=== PATIENT | female | born 1970 | race Caucasian/White ===

== ENCOUNTER 2025-01-01 09:23 | Emergency (ER) | payer MEDICAID, SELFPAY ==
--- NOTE | 2025-01-01 09:33 | XR_ITS ---
Examination: PA lateral chest 2 views TECHNIQUE: Upright PA lateral chest 2 views INDICATIONS: Coughing fever difficulty breathing chest pain beginning this morning. FINDINGS: Mild opacity in the lingular segment on the lateral view Normal heart size Intact osseous structures IMPRESSION: Suspicious for early pneumonia in the lingular segment left upper lobe
[2025-01-01 09:35] VITALS: BP 138/97; PULSE 105; RESP 19; TEMP 36.6; O2SAT 98
--- NOTE | 2025-01-01 09:37 | EDNOTE_ITS ---
ED SOB =RME/HPI General Chief Complaint: Shortness of Breath/Dyspnea Stated Complaint: DIFFICULTY BREATHING SINCE THIS AM, HAS PNA Time Seen by Provider: 01/01/25 09:30 Source: patient Arrival date/time: 01/01/25 09:23 54-year-old female with no known medical history presents to the emergency room with a chief complaint of difficulty breathing since this morning. Mode of arrival: ambulatory Limitations: no limitations Related Data Previous Rx's ?Medication ?Instructions ?Recorded ibuprofen 800 mg tablet 800 mg PO TID PRN pain #30 t abs 05/16/19 hydrocodone 5 mg-acetaminophen 325 1 tab PO Q6H #12 ta bs 05/22/19 mg tablet albuterol sulfate 90 mcg/actuation 2 puff inhalation Q 6H PRN 01/01/25 aerosol inhaler (Ventolin HFA) shortness of breath or wheezing #6.7 grams amoxicillin 875 mg-potassium 1 tab PO BID 7 days #14 t abs 01/01/25 clavulanate 125 mg tablet promethazine 6.25 mg-codeine 10 5 ml PO Q6H PRN cough #118 mL 01/01/25 mg/5 mL syrup Allergies Allergy/AdvReac Type Severity Reaction Status Date / Time No Known Allergies Allergy Verified 01/01/25 09:26 Review of Systems Review of Systems Systems Reviewed: All systems reviewed, normal except as documented Constitutional Constitutional: Reports system reviewed and no additional complaints, except as documented, Denies fatigue, Denies fever(s), Denies headache(s) and Denies weakness Eyes Eyes: Reports system reviewed and no additional complaints, except as documented, Denies blurry vision and Denies change in vision ENT Ears, Nose, Mouth, and Throat: Reports system reviewed and no additional complaints, except as documented, Denies otalgia, Denies headache(s), Denies nasal congestion, Denies throat swelling and Denies vertigo Cardiovascular Cardiovascular: Reports system reviewed and no additional complaints, except as documented, Denies chest pain, Reports dyspnea and Reports dyspnea on exertion Respiratory Respiratory: Reports system reviewed and no additional complaints, except as documented, Reports chest congestion, Reports cough, Reports dyspnea, Reports dyspnea on exertion, Reports excessive phlegm production and Denies wheezing Gastrointestinal Gastrointestinal: Reports system reviewed and no additional complaints, except as documented, Denies abdominal pain, Denies cramping, Denies nausea and Denies vomiting Genitourinary Genitourinary: Reports system reviewed and no additional complaints, except as documented Musculoskeletal Musculoskeletal: Reports system reviewed and no additional complaints, except as documented and Denies back pain Integumentary/Breasts Skin/Breast: Reports system reviewed and no additional complaints, except as documented and Denies wounds Neurologic Neurologic: Reports system reviewed and no additional complaints, except as documented, Denies confusion, Denies headache(s), Denies lack of coordination, Denies vertigo and Denies weakness Psychiatric Psychiatric: Reports system reviewed and no additional complaints, except as documented, Denies anxiety, Denies confusion, Denies depression, Denies paranoia, Denies suicidal ideation and Denies tactile hallucinations Endocrine Endocrine: Reports system reviewed and no additional complaints, except as documented and Denies fatigue Hematologic/Lymphatic Hematologic/Lymphatic: Reports system reviewed and no additional complaints, except as documented and Denies lymphadenopathy Allergic/Immunologic Allergic/Immunologic: Reports system reviewed and no additional complaints, except as documented, Denies throat swelling, Denies urticaria and Denies wheezing Past Medical History Past Medical History CARDIAC: Negative Congestive Heart Failure RESPIRATORY: Negative Chronic Obstructive Pulmonary Disease (COPD) GENITOURINARY: Negative Renal Disease ENDOCRINE: Negative Diabetes Mellitus Type 1 or Diabetes Mellitus Type 2 Social History SMOKING STATUS: Former smoker ED Exam General Limitations: Present no limitations General appearance: Present alert and in no apparent distress Head Head exam: Present atraumatic Eye Eye exam: Present normal appearance, PERRL and EOMI ENT ENT exam: Present normal exam, normal oropharynx and mucous membranes moist Neck Neck exam: Present normal inspection, full ROM and trachea midline Chest Chest inspection: Present normal inspection and symmetric chest wall rise Respiratory Respiratory exam: Present normal lung sounds bilaterally; Absent respiratory distress, wheezes, stridor, accessory muscle use or prolonged expiratory phase Cardiovascular Cardiovascular exam: Present regular rate, normal rhythm and normal heart sounds Abdominal Exam Abdominal exam: Present soft and normal bowel sounds Extremities Exam Extremities exam: Present normal inspection and full ROM Back Exam Back exam: Present normal inspection and full ROM Neurological Exam Neurological exam: Present alert, oriented X3 and CN II-XII intact Psychiatric Psychiatric exam: Present normal affect and normal mood Skin Skin exam: Present warm, dry, intact and normal color Course Quality Measures none Orders Category Date Time Status Bedside COVID-19 Antigen Test NOW Care 01/01/25 09:33 Active Bedside Influenza A&B Antigen Test NOW Care 01/01/25 09:33 Active XR chest 2V Stat Exams 01/01/25 09:33 Completed Albuterol/Ipratr Rt [place] [Duoneb Rt [place]] Med 01/01/25 09:33 Discontinued 3 ml INH X1 ONE Dexamethasone Inj [Decadron Inj] Med 01/01/25 09:33 Discontinued 10 mg PO X1 ONE HYDROcodone*/APAP 5/325 [[place] 5/325] Med 01/01/25 11:35 Discontinued 1 tab PO X1 ONE cefTRIAXone [Rocephin] 1,000 mg Med 01/01/25 11:35 Discontinued Lidocaine 1% 20 ml [Xylocaine 1% 20 ML] 2.1 ml IM X1 Vital Signs Vital signs: Vital Signs Temperature 97.9 F 01/01/25 09:35 Pulse Rate 105 H 01/01/25 09:35 Respiratory Rate 19 01/01/25 09:35 Blood Pressure 138/97 H 01/01/25 09:35 Pulse Oximetry (%) 98 01/01/25 09:35 Oxygen Delivery Method Room Air 01/01/25 09:35 O2 saturation 98% within normal limits Shortness of Breath / Dyspnea MDM Narrative MDM Narrative:: 54-year-old female with no known medical history presents to the emergency room with a chief complaint of difficulty breathing since this morning. Patient is hemodynamically stable and in no apparent distress. Physical examination shows bilateral upper lobe wheezing. The patient is hemodynamically stable she is not tachypneic not tachycardic and her O2 saturation is 98% on room air. The patient is afebrile. X-ray was completed and shows pneumonia in the left upper lobe. COVID-19 influenza were both negative. The patient was given a breathing treatment with steroids which showed significant improvement in her symptoms. Antibiotics are sent to the patient's pharmacy Patient was discharged and educated to follow-up with primary care provider in the next 24 to 48 hours and return to the emergency room for any evidence of worsening signs or symptoms Patient data External records reviewed:: [facility] previous records Clinical information provided by:: patient Social determinants that could affect healthcare access:: none Patient has the following chronic illnesses:: No chronic illness How is presenting disease/condition affected by chronic disease/condition?: no chronic disease Evaluation data The following diagnostics were reviewed and interpreted by me:: lab results and radiology exam(s) Lab and/or radiology exams considered but not ordered:: Labs and radiology exams considered and ordered Interpretation Summary: Chest [id number]: Mild opacity in the lingular segment on the lateral view Normal heart size Intact osseous structures IMPRESSION: Suspicious for early pneumonia in the lingular segment left upper lobe Medications / Prescriptions Medications or Prescriptions considered but not ordered:: Medication given Medication administrations:: Medication Administration History Discontinued Medications Hydrocodone Bitart/Acetaminophen (Hydrocodone/Apap 5/325 Tablet) 1 tab PO X1 ONE Stop: 01/01/25 11:36 Last Admin: 01/01/25 11:44 Dose: 1 tab Documented By: OA Albuterol/Ipratropium (Albuterol/Ipratropium (Duoneb) Rt [place] 3 Ml Nebu) 3 ml INH X1 ONE Stop: 01/01/25 09:34 Last Admin: 01/01/25 11:08 Dose: 3 ml Documented By: CS Ceftriaxone Sodium 1,000 mg/ (Lidocaine HCl 2.1 ml) 0 mg IM X1 ONE Stop: 01/01/25 11:36 Last Admin: 01/01/25 11:46 Dose: 1,000 mg Documented By: OA Dexamethasone Sodium Phosphate (Dexamethasone Sod Phos Inj 10 Mg/Ml Vial) 10 mg PO X1 ONE Stop: 01/01/25 09:34 Last Admin: 01/01/25 09:41 Dose: 10 mg Documented By: [facility] Comments: ordered orally Medication given Consultations Consultation(s) initiated? (list below): No Diagnosis Shortness of Breath Differential Diagnosis: congestive heart failure, community acquired pneumonia and asthma with exacerbation Most likely diagnosis given after review of the tests above:: Community-acquired pneumonia Admission Indicated Admission indicated?: not indicated Admission Request Was there a request for admission?: No Disposition Plan Disposition Plan: Discharge Discharge Attestation Discharge Attestation: The patient and all family members were given an opportunity to ask questions and understood the discharge instructions. Discharge instructions specifically effects, indications for sooner follow up or return to the emergency department, and the expected course of current diagnosis. Patient condition: Stable Discharge Plan Plan Patient Disposition: HOME (Self Care) Discharge Disposition comment: Stable Prescriptions/Referrals Prescriptions/Med Rec: New albuterol sulfate [Ventolin HFA] 90 mcg/actuation HFA aerosol inhaler 2 puff inhalation Q6H PRN (Reason: shortness of breath or wheezing) Qty: 6.7 0RF amoxicillin-pot clavulanate 875-125 mg tablet 1 tab PO BID 7 Days Qty: 14 0RF promethazine-codeine 6.25-10 mg/5 mL syrup 5 ml PO Q6H PRN (Reason: cough) Qty: 118 0RF No Action ibuprofen 800 mg tablet 800 mg PO TID PRN (Reason: pain) Qty: 30 0RF hydrocodone-acetaminophen 5-325 mg tablet 1 tab PO Q6H MDD 6 Qty: 12 0RF Referrals: Darion Shrestha MD [Primary Care Provider] - In 1 week Problem List Clinical Impression: Community acquired pneumonia Patient/Caregiver Discharge Instructions Education Materials: ED Pneumonia (Adult) Additional Instructions: Please follow-up with your primary care provider in the next 24 to 48 hours. Medication was sent to your pharmacy please pick it up and take it as indicated For any evidence of worsening signs or symptoms return the emergency room immediately Print Language: Bengali Stand Alone Forms: Lucia Award Info., Patient Portal Info Letter PA/HOOP BENDER TANK Supervising Physician PA/DREA Supervising Physician: Dr. Nguyen
[2025-01-01] MEDS: DEXAMETHASONE SOD PHOS INJ 10 MG/ML VIAL PO (09:41)
[2025-01-01] MEDS: ALBUTEROL/IPRATROPIUM (Duoneb) RT SOL 3 ML NEBU INH (11:08)
[2025-01-01 11:09] VITALS: PULSE 99; RESP 18; O2SAT 100
[2025-01-01] MEDS: HYDROcodone/APAP 5/325 TABLET 1 TAB PO (11:44)
[2025-01-01] MEDS: cefTRIAXone 1,000 MG, LIDOCAINE 1% 20 ML 2.1 ML IM (11:46)
[2025-01-01 12:43] VITALS: BP 124/74; PULSE 78
== END 2025-01-01 12:44 | disposition home or self-care (01) ==
PROVIDERS: Emergency Provider Family Medicine; PCP Family Medicine
DX: J18.9 Pneumonia, unspecified organism (principal); Z87.891 Personal history of nicotine dependence
CPT/HCPCS: 71046; 94640; 96372; 99283; A9270; J0696; J1100; J3490

== ENCOUNTER 2025-08-17 22:44 | Inpatient (IN) | payer MEDICAID, SELFPAY ==
[2025-08-17 22:53] VITALS: BP 142/83; PULSE 116; RESP 18; TEMP 38.1; O2SAT 97
[2025-08-17 22:55] VITALS: PULSE 101; RESP 24; O2SAT 98; BMI 23.5
[2025-08-17 23:07] VITALS: BP 123/102; PULSE 128; RESP 23; TEMP 37.4; O2SAT 93
--- NOTE | 2025-08-17 23:07 | EKG_ITS ---
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
--- NOTE | 2025-08-17 23:10 | PD.EDSOB ---
ED SOB =RME/HPI General Chief Complaint: Shortness of Breath/Dyspnea Stated Complaint: SOB Time Seen by Provider: 08/17/25 23:10 Arrival date/time: 08/17/25 22:44 RME / HPI RME / HPI Narrative: Dr. Rosales?s Main ED Evaluation: 55yo female LUIS A from home presenting with gradual increasing shortness of breath and pleuritic chest pain throughout the evening. Reports flu-like symptoms consistent with cold, cough, congestion, and body aches. No N/V/D. PMH unremarkable. PSH includes previous salpingectomy due to ectopic . NKA. Related Data Previous Rx's ?Medication ?Instructions ?Recorded ibuprofen 800 mg tablet 800 mg PO TID PRN pain #30 tabs 05/16/19 hydrocodone 5 mg-acetaminophen 325 1 tab PO Q6H #12 tabs 05/22/19 mg tablet albuterol sulfate 90 mcg/actuation 2 puff inhalation Q6H PRN 01/01/25 aerosol inhaler (Ventolin HFA) shortness of breath or wheezing #6.7 grams promethazine 6.25 mg-codeine 10 5 ml PO Q6H PRN cough #118 mL 01/01/25 mg/5 mL syrup Allergies Allergy/AdvReac Type Severity Reaction Status Date / Time No Known Allergies Allergy Verified 01/01/25 09:26 Review of Systems Review of Systems Systems Reviewed: All systems reviewed, normal except as documented Past Medical History Past Medical History CARDIAC: Negative Congestive Heart Failure RESPIRATORY: Negative Chronic Obstructive Pulmonary Disease (COPD) GENITOURINARY: Negative Renal Disease ENDOCRINE: Negative Diabetes Mellitus Type 1 or Diabetes Mellitus Type 2 Social History SMOKING STATUS: Former smoker ED Exam Narrative Physical exam: GENERAL APPEARANCE: alert and oriented x 4, well-developed, well-nourished, complaining of intense chest pain and shortness of breath, in moderate distress HEENT: Normocephalic, atraumatic; pupils equal, round, reactive to light; EOMI; mucous membranes pink, moist; oropharynx clear NECK: Supple LUNGS: Poor inspiratory effort due to pain, extremely diminished breath sounds at the right base HEART: Tachycardic, regular rhythm; normal S1, S2; no murmurs ABDOMEN: non distended; normal BS; soft, no tenderness, no guarding, no rebound; no masses, no organomegaly, no hernia BACK: no CVA tenderness EXTREMITIES: atraumatic; no edema NEUROLOGIC: awake; alert and oriented x4; cranial nerves II-XII grossly intact; no focal sensory or motor deficits PSYCHIATRIC: appropriate mood and affect SKIN: warm, dry, normal color; no rashes Course Course Course Narrative: CXR is ordered for determining the etiology of shortness of breath. Quality Measures none Orders Category Date Time Status Bedside COVID-19 Antigen Test NOW Care 08/18/25 03:46 Active Hospice Manager STAT Care 08/18/25 02:49 Active Continuous Pulse Oximetry STAT Care 08/18/25 02:49 Completed EKG (ED ONLY) *Do not use* NOW Care 08/17/25 23:07 Completed In and Out Catheter X1PRN Care 08/18/25 02:49 Active Insert IV NOW Care 08/18/25 02:49 Active NPO STAT Care 08/18/25 02:49 Active Strict Intake and Output Routine Care 08/18/25 02:49 Ordered EKG (ED Only) Stat Exams 08/17/25 23:07 Draft XR chest 1V portable Stat Exams 08/17/25 23:26 Completed B-Type Natriuretic Peptide Stat Lab 08/18/25 03:10 Completed Blood Culture (Lab) Stat Lab 08/18/25 03:10 Received CBC Stat Lab 08/18/25 03:10 Completed Comprehensive Metabolic Panel Stat Lab 08/18/25 03:10 Completed LDH (Lactate Dehydrogenase) Stat Lab 08/18/25 03:10 Completed Lactate (Lactic Acid) Stat Lab 08/18/25 03:10 Completed Lipase Stat Lab 08/18/25 03:10 Completed Magnesium Stat Lab 08/18/25 03:10 Completed Partial Thromboplastin Time Stat Lab 08/18/25 03:10 Completed Phosphorous Stat Lab 08/18/25 03:10 Completed Procalcitonin Stat Lab 08/18/25 03:10 Completed Prothrombin Time with INR Stat Lab 08/18/25 03:10 Completed Troponin I Stat Lab 08/18/25 03:10 Completed Urinalysis, C/S if Indicated Stat Lab 08/18/25 02:49 Ordered Haloperidol Lactate [Haldol Inj] Med 08/18/25 03:05 Discontinued 5 mg IM X1 ONE Ipratropium [place] Rt [place] [Atrovent Rt [place]] Med 08/17/25 23:27 Discontinued 0.5 mg INH X1 ONE Ketorolac Inj [Toradol Inj] Med 08/17/25 23:25 Discontinued 30 mg IM X1 ONE Ketorolac Inj [Toradol Inj] Med 08/18/25 04:10 Discontinued 30 mg IVP X1 ONE Levalbuterol Rt [Xopenex Rt [place]] Med 08/17/25 23:25 Discontinued 0.63 mg INH X1 ONE Midazolam Inj [Versed Inj] Med 08/18/25 03:05 Discontinued 2 mg IM X1 ONE Midazolam Inj [Versed Inj] Med 08/17/25 23:25 Discontinued 5 mg IM X1 ONE Ondansetron Inj [Zofran Inj] Med 08/18/25 02:49 Active 4 mg IVP Q6HR PRN Ondansetron Odt [Zofran Odt] Med 08/18/25 02:49 Pending 4 mg PO Q6HR PRN Sodium Chloride 0.9% 1000 ml [Ns] 1,641 ml Med 08/18/25 02:49 Discontinued IV 1,641 mls/hr cefTRIAXone/D5w 1gm IV premix [Rocephin/D5w 1gm IV Med 08/18/25 02:49 Discontinued premix] 1 gm in 50 ml IV X1 Oxygen Delivery NOW RT 08/18/25 02:49 Active Vital Signs Vital signs: Vital Signs Temperature 100.5 F H 08/17/25 22:53 Pulse Rate 116 H 08/17/25 22:53 Respiratory Rate 18 08/17/25 22:53 Blood Pressure 142/83 H 08/17/25 22:53 Pulse Oximetry (%) 97 08/17/25 22:53 Shortness of Breath / Dyspnea MDM Narrative MDM Narrative:: Scribe Attestation: 08/17/25 - Suha Roque am scribing for and in the presence of Dr. Rosales. 55yo female BIBA from home presenting with gradual increasing shortness of breath and pleuritic chest pain throughout the evening. Reports flu-like symptoms consistent with cold, cough, congestion, and body aches. Please see PE findings. Patient was somewhat hysterical upon presentation, requiring sedation. Continues to complain of right lower pleuritic chest pain and is mildly tachycardic at rest although sedated. She is saturating in the mid 90 percentile range. CXR demonstrates right lower lobe pneumonia. Will enroll patient sepsis protocol. Hospitalist will be consulted for admission. Dx: acute sepsis, pneumonia Patient data External records reviewed:: [facility] previous records (Per chart review, patient was seen here on 01/01/25 for community acquired pneumonia.) and EMS form Clinical information provided by:: patient and EMS Social determinants that could affect healthcare access:: substance use (history of) Patient has the following chronic illnesses:: none How is presenting disease/condition affected by chronic disease/condition?: no chronic disease Evaluation data The following diagnostics were reviewed and interpreted by me:: lab results, radiology exam(s) and EKG tracing(s) Lab and/or radiology exams considered but not ordered:: none Interpretation Summary: EKG done at 2312, sinus tachycardia, rate of 122, no acute pathological ST segment changes, no ectopy, ?LVH by voltage criteria, left axis deviation, according to my interpretation. [place] [facility] Report Signed Patient: BLAIEN AMARO [facility]. Record#: [id number] Birthdate: 1970 Age/Sex: 55 / F Location: [facility] Attending Dr: Ordering Physician: Zach Honeycutt DO Date of Service: 08/17/25 Procedure(s): XR chest 1V portable Accession Number(s): [id number] cc: Zach Honeycutt DO; Willi Walls MD~ EXAMINATION: AP chest single view TECHNIQUE: AP portable upright chest single view Date and time: , 11:42 p.m., comparison January 01, 2025 INDICATIONS: Shortness of breath today. FINDINGS: Early pneumonia right base Normal heart size No pulmonary edema Moderate osteopenia IMPRESSION: Early pneumonia right base Dictated By: Willi Walls MD Signed By: <Electronically signed by Willi Walls MD in [place]> 08/17/25 3586 Medications / Prescriptions Medications or Prescriptions considered but not ordered:: none Medication administrations:: Medication Administration History Ondansetron HCl (Ondansetron Inj 2 Mg/Ml Inj 2 Ml) 4 mg IVP Q6HR PRN PRN Reason: NAUSEA OR VOMITING Stop: 09/17/25 02:48 Ondansetron HCl (Ondansetron Odt 4 Mg Tabrap) 4 mg PO Q6HR PRN PRN Reason: NAUSEA OR VOMITING Stop: 09/17/25 02:48 Discontinued Medications Haloperidol Lactate (Haloperidol Lact Inj 5 Mg/Ml Vial) 5 mg IM X1 ONE Stop: 08/18/25 03:06 Last Admin: 08/18/25 05:12 Dose: Not Given Documented By: UMAIR Non-Admin Reason: Cancelled by Provider Sodium Chloride (Ns) 1,641 mls @ 1,641 mls/hr 30 ml/kg infuse over 60 min (1641 ml) IV .Q1H ONE Stop: 08/18/25 03:48 Last Admin: 08/18/25 03:20 Dose: 1,641 mls/hr Documented By: PORTIA Ceftriaxone Sodium/Dextrose (Rocephin/D5w 1gm Iv Premix) 1 gm in 50 mls @ 100 mls/hr IV X1 ONE Stop: 08/18/25 03:18 Last Admin: 08/18/25 03:21 Dose: 100 mls/hr Documented By: PORTIA Ipratropium [place] (Ipratropium Rt 0.5 Mg/ 2.5 Ml Nebu) 0.5 mg INH X1 ONE Stop: 08/17/25 23:28 Last Admin: 08/17/25 23:52 Dose: 0.5 mg Documented By: JOSE Ketorolac Tromethamine (Ketorolac Inj 30 Mg/Ml Vial) 30 mg IM X1 ONE Stop: 08/17/25 23:26 Last Admin: 08/17/25 23:39 Dose: 30 mg Documented By: UMAIR Ketorolac Tromethamine (Ketorolac Inj 30 Mg/Ml Vial) 30 mg IVP X1 ONE Stop: 08/18/25 04:11 Last Admin: 08/18/25 04:16 Dose: 30 mg Documented By: PORTIA Levalbuterol HCl (Levalbuterol Rt 0.63 Mg/3 Ml Nebu) 0.63 mg INH X1 ONE Stop: 08/17/25 23:26 Last Admin: 08/17/25 23:52 Dose: 0.63 mg Documented By: JOSE Midazolam HCl (Midazolam Inj 1 Mg/Ml Vial 2 Ml) 5 mg IM X1 ONE Stop: 08/17/25 23:26 Last Admin: 08/17/25 23:39 Dose: 5 mg Documented By: UMAIR Midazolam HCl (Midazolam Inj 1 Mg/Ml Vial 2 Ml) 2 mg IM X1 ONE Stop: 08/18/25 03:06 Last Admin: 08/18/25 05:12 Dose: Not Given Documented By: UMAIR Non-Admin Reason: Cancelled by Provider see above Consultations Consultation(s) initiated? (list below): Yes Consultation #1 (Physician, Specialty, Details): Discussed case with the resident physician, attending Dr. Lopez from Hospitalist service regarding admission. Discussed patients ED course, exam findings, labs, and radiology results. The Hospitalist will evaluate the patient for admission. Time: 05:14 Diagnosis Shortness of Breath Differential Diagnosis: community acquired pneumonia and other (dehydration, electrolyte abnormality, drug use) Most likely diagnosis given after review of the tests above:: see clinical impression below Admission Indicated Admission indicated?: indicated Admission Request Was there a request for admission?: Yes Admission Attestation Admission request attestation: Discussed case with [] from Hospitalist service regarding admission. Discussed patients ED course, exam findings, labs, and radiology results. The Hospitalist [agrees,declines] to accept the patient for admission. Disposition Plan Disposition Plan: Admit Discharge Plan Plan Patient Disposition: Admit Acute Care w/in Hospital Prescriptions/Referrals Prescriptions/Med Rec: No Action ibuprofen 800 mg tablet 800 mg PO TID PRN (Reason: pain) Qty: 30 0RF hydrocodone-acetaminophen 5-325 mg tablet 1 tab PO Q6H MDD 6 Qty: 12 0RF albuterol sulfate [Ventolin HFA] 90 mcg/actuation HFA aerosol inhaler 2 puff inhalation Q6H PRN (Reason: shortness of breath or wheezing) Qty: 6.7 0RF promethazine-codeine 6.25-10 mg/5 mL syrup 5 ml PO Q6H PRN (Reason: cough) Qty: 118 0RF Problem List Clinical Impression: Acute sepsis, Pneumonia Patient/Caregiver Discharge Instructions Print Language: Kenyan Stand Alone Forms: Lucia Award Info., Patient Portal Info Letter
--- NOTE | 2025-08-17 23:26 | XR_ITS ---
EXAMINATION: AP chest single view TECHNIQUE: AP portable upright chest single view Date and time: , 11:42 p.m., comparison January 01, 2025 INDICATIONS: Shortness of breath today. FINDINGS: Early pneumonia right base Normal heart size No pulmonary edema Moderate osteopenia IMPRESSION: Early pneumonia right base
[2025-08-17] MEDS: KETOROLAC INJ 30 MG/ML VIAL IM (23:39)
[2025-08-17] MEDS: MIDAZOLAM INJ 1 MG/ML VIAL 2 ML 5 MG IM (23:39)
[2025-08-17] MEDS: IPRATROPIUM RT 0.5 MG/ 2.5 ML NEBU INH (23:52)
[2025-08-17] MEDS: LEVALBUTEROL RT 0.63 MG/3 ML NEBU INH (23:52)
[2025-08-17 23:54] VITALS: BP 137/99; PULSE 125; RESP 22; O2SAT 97
[2025-08-18] VITALS (13 sets, daily range): BP systolic 110–144; BP diastolic 71–97; PULSE 94–121; RESP 15–29; TEMP 36.5–37.2; O2SAT 96–100
[2025-08-18] MEDS: SODIUM CHLORIDE 0.9% 1000 ML 1,641 ML 1641 ML IV (03:20)
[2025-08-18 03:21] LABS: Lactate (Lactic Acid) 1.2 mMol/L (0.4-2.0)
[2025-08-18] MEDS: cefTRIAXone/D5w 1gm IV premix 1 GM/50 ML BAG IV (03:21)
[2025-08-18 03:22] LABS: Basophils # (Auto) 0.0 Thou/mm3 (0.0-0.2); Basophils % (Auto) 0 % (0-2.5); Eosinophils # (Auto) 0.0 Thou/mm3 (0.0-0.5); Eosinophils % (Auto) 0 % (0-10); Hematocrit 40.1 % (36.0-46.0); Hemoglobin 13.1 g/dL (12.0-16.0); Immature Granulocytes Auto 0.05 Thou/mm3 (0.00-0.00); Lymphocytes # (Auto) 1.1 Thou/mm3 (1.0-4.8); Lymphocytes % (Auto) 7 % (10-50); Mean Corpuscular HGB Conc 32.7 g/dl (31.0-37.0); Mean Corpuscular Hemoglobin 29.8 pg (25.0-35.0); Mean Corpuscular Volume 91 fL (80-100); Monocytes # (Auto) 1.1 Thou/mm3 (0.0-0.8); Monocytes % (Auto) 7 % (0-12); Neutrophils # (Auto) 13.1 Thou/mm3 (1.8-7.7); Neutrophils % (Auto) 86 % (37-80); Nucleated Red Blood Cell # 0.00 Thou/mm3 (0.00-0.00); Nucleated Red Blood Cell % 0 /100 WBC (0); Platelet Count 264 Thou/mm3 (140-440); RDW Standard Deviation 42.8 fL (36.4-46.3); Red Blood Count 4.40 Miln/mm3 (4.00-5.20); White Blood Count 15.3 Thou/mm3 (3.6-11.0)
[2025-08-18 03:47] LABS: INR 1.0 (0.9-1.3); Partial Thromboplastin Time 27.5 Seconds (22.0-36.0); Prothrombin Time 10.8 Seconds (9.0-12.2)
[2025-08-18 03:55] LABS: Alanine Aminotransferase 104 U/L (10-49); Albumin, Serum 4.5 gm/dL (3.5-5.0); Albumin/Globulin Ratio 1.6 (1.2-2.2); Alkaline Phosphatase 192 U/L (46-116); Anion Gap 11 (7-16); Aspartate Amino Transferase 61 U/L (0-34); B-Type Natriuretic Peptide < 20 pg/mL (0-100); BUN/Creatinine Ratio 23 Ratio (12-20); Bilirubin,Total 1.0 mg/dL (0.3-1.2); Blood Urea Nitrogen 14 mg/dL (9-23); Calcium 10.2 mg/dL (8.3-10.6); Calcium (Corrected) 10.2 mg/dL (8.5-10.1); Carbon Dioxide 25.8 mMol/L (20.0-31.0); Chloride 102 mMol/L (98-107); Creatinine (Component) 0.6 mg/dL (0.6-1.3); Estimated Creatinine Clearance 91.5 mL/min (>60); Globulin 2.9 gm/dL (2.3-3.5); Glucose 94 mg/dL (74-106); LDH (Lactate Dehydrogenase) 242 U/L (120-246); Lipase 25 U/L (12-53); Magnesium 2.0 mg/dL (1.6-2.6); Osmolality,Calculated 278 (275-295); Phosphorous 4.2 mg/dL (2.4-5.1); Potassium 3.9 mMol/L (3.4-5.1); Procalcitonin 0.17 ng/ml (0.0-0.49); Sodium 139 mMol/L (136-145); Total Protein 7.4 gm/dL (5.7-8.2); Troponin I < 0.020 ng/mL (0.0-0.045); eGFR > 60 See Note
[2025-08-18] MEDS: KETOROLAC INJ 30 MG/ML VIAL IVP (04:16)
--- NOTE | 2025-08-18 05:50 | XR_ITS ---
Examination: Abdomen sonogram, complete Date and time of exam: August 18, 2025, 0710 hours INDICATIONS: Right upper abdominal pain beginning last night. Technique: Multiple real-time grayscale transabdominal sonographic images of the abdomen have been obtained. Findings: Normal gallbladder Normal common bile duct 0.3 cm Pancreatic head 1.4 cm Aorta not enlarged Liver 18.2 cm lobular contour Normal hepatopetal portal venous flow Patent IVC Right kidney 10.4 cm renal cortex 1.0 cm Left kidney 11.2 cm renal cortex 1.6 cm Moderate renal scarring Spleen 9.1 cm IMPRESSION: Normal gallbladder Normal common bile duct Moderate hepatomegaly, suspect primary hepatocellular disease
--- NOTE | 2025-08-18 05:59 | ESHP_ITS ---
Documentation for date of: 08/18/25 [facility] History of Present Illness Chief complaint: Shortness of breath History of present illness: This patient is a 55-year-old female with no significant past medical history who presents to [facility] ED on 08/17 with chief complaint of shortness of breath. Patient was admitted for management of alcohol withdrawal. Most of the patient history was taken from the boyfriend at the patient's bedside as the patient was significantly lethargic after being given midazolam and haloperidol for her acute agitation while in the ED. According to the patient's boyfriend, the patient has a long history of drinking a small bottle of vodka for many years and has been doing so daily. Sometime about 2 to 3 days ago, the patient decided to suddenly stop drinking, and then on 08/17, the patient was noted to have a feeling of difficulty breathing, which prompted the patient to come to the ED. Additionally, the patient was supposedly diagnosed with hepatitis C, however just before the patient was going to receive medication for hepatitis C, her repeat titers came back negative for hepatitis C, so she was never given any treatment for this. Additionally, apparently she has a liver mass that was diagnosed with a CT scan of her abdomen and pelvis in outside facility. The patient's is not quite sure what else is going on with the patient and the patient herself was unable to provide any further history. According to the patient's , the patient did not have any fever, chills, chest pain, abdominal pain, and dysuria. Patient's also did not mention anything about vomiting, however unable to get a proper response out of the patient herself. ED course: Initial vitals significant for blood pressure of 142/83, heart rate of 116, and temperature of 100.5 ?F with an O2 saturation of 97% on room air Initial labs significant for WBC of 12.3, hemoglobin of 11.7, AST of 61, ALT 104, and alk phos of 192 Chest x-ray shows other pneumonia right base In ED, patient was given midazolam, haloperidol, ceftriaxone, 1.6 L of NS, with albuterol/ipratropium, and ketorolac Past Surgical History: Patient's is not sure Current Medication(s): Patient's denies any current medications Allergies (w/ Reactions): NKDA Family History: Noncontributory Alcohol Intake: Small bottle of vodka daily for many years Tobacco/Vape Use: Patient's denies Other Drug Use: Patient's denies Review of Systems Review of Systems Systems Reviewed: All systems reviewed, normal except as documented Exam Vital Signs Temp Pulse Resp BP Pulse Ox O2 Del Method 98.2 F 95 21 H 127/79 100 Room Air 08/18/25 05:55 08/18/25 05:55 08/18/25 05:55 08/18/25 05:55 08/18/25 05:55 08/18/25 05:32 Narrative Exam Physical Exam: General: Lethargic, no acute distress. Skin: Warm, dry, intact. Head: Normocephalic, atraumatic. Eye: Normal conjunctiva, PERRL. Cardiovascular: Regular rate and rhythm, no murmur, +S1/S2. Respiratory: Lungs are clear to auscultation, respirations unlabored, no crackles, no wheezing. Gastrointestinal: Soft, tender to palpation of RUQ with negative Germain's sign, non-distended. No guarding or rebound tenderness. Extremities: No edema, no cyanosis, no clubbing. 2+ radial pulse bilaterally, 2+ pedal pulse bilaterally. Neuro: No focal deficits observed. Conversant, moving all extremities. No overt cerebellar signs/incoordination. Psychiatric: Non-cooperative, flat affect. Results: Labs 08/19/25 03:14 08/19/25 03:14 Labs: Short CBC 08/18/25 Range/Units 03:10 WBC 15.3 H (3.6-11.0) Thou/mm3 Hgb 13.1 (12.0-16.0) g/dL Hct 40.1 (36.0-46.0) % Plt Count 264 (140-440) Thou/mm3 BMP 08/18/25 03:10 Sodium 139 Potassium 3.9 Chloride 102 Carbon Dioxide 25.8 BUN 14 Creatinine 0.6 Glucose 94 Calcium 10.2 Cardiac Enzymes 08/18/25 Range/Units 03:10 Troponin I < 0.020 (0.0-0.045) ng/mL Liver Function 08/18/25 Range/Units 03:10 Total Bilirubin 1.0 (0.3-1.2) mg/dL AST 61 H (0-34) U/L ALT 104 H (10-49) U/L Alkaline Phosphatase 192 H (46-116) U/L Albumin 4.5 (3.5-5.0) gm/dL Quality Measures Quality Measures VTE prophylaxis Medications Home Medications and Allergies Allergies Allergy/AdvReac Type Severity Reaction Status Date / Time No Known Allergies Allergy Verified 01/01/25 09:26 Visit Medications Acetaminophen (Acetaminophen 325 Mg Tablet) 650 mg PO Q6H PRN PRN Reason: Fever >101.5 or pain 1-3 Stop: 09/17/25 05:43 Albuterol/Ipratropium (Albuterol/Ipratropium (Duoneb) Rt [place] 3 Ml Nebu) 3 ml INH Q6HR PRN PRN Reason: SHORTNESS OF BREATH OR WHEEZE Stop: 09/17/25 05:43 Diazepam (Diazepam Inj 5 Mg/Ml Vial 2 Ml) 2.5 mg IVP Q2HR PRN PRN Reason: CIWA SCORE 8-13 Stop: 08/23/25 05:50 Diazepam (Diazepam Inj 5 Mg/Ml Vial 2 Ml) 5 mg IVP Q2HR PRN PRN Reason: CIWA SCORE 14-19 Stop: 08/23/25 05:50 Diazepam (Diazepam Inj 5 Mg/Ml Vial 2 Ml) 10 mg IVP Q2HR PRN PRN Reason: CIWA SCORE 20-25 Stop: 08/23/25 05:50 Diazepam (Diazepam Inj 5 Mg/Ml Vial 2 Ml) 10 mg IVP X1 PRN PRN Reason: Breakthrough Agitation Folic Acid (Folic Acid 1 Mg Tablet) 1 mg PO BID DAVID Stop: 08/23/25 08:59 Heparin Sodium (Porcine) (Heparin Sod Inj 5000 Unit/Ml Vial) 5,000 unit SC Q12H DAVID Stop: 09/01/25 05:44 Ceftriaxone Sodium/Dextrose (Rocephin/D5w 1gm Iv Premix) 1 gm in 50 mls @ 100 mls/hr IV QDAY DAVID Stop: 08/26/25 03:59 Azithromycin 500 mg/ Sodium (Chloride) 250 mls @ 250 mls/hr IV QDAY DAVID Stop: 08/19/25 09:59 Thiamine HCl 100 mg/ Sodium (Chloride) 51 mls @ 102 mls/hr IV X1 STA Stop: 08/18/25 06:20 Lorazepam (Lorazepam 0.5 Mg Tablet) 0.5 mg PO Q4HR PRN PRN Reason: CIWA Score 2-7 Stop: 08/23/25 05:55 Ondansetron HCl (Ondansetron Inj 2 Mg/Ml Inj 2 Ml) 4 mg IVP Q6HR PRN PRN Reason: NAUSEA OR VOMITING Stop: 09/17/25 02:48 Ondansetron HCl (Ondansetron Odt 4 Mg Tabrap) 4 mg PO Q6HR PRN PRN Reason: NAUSEA OR VOMITING Stop: 09/17/25 02:48 Ondansetron HCl (Ondansetron Inj 2 Mg/Ml Inj 2 Ml) 4 mg IVP Q6H PRN; Protocol PRN Reason: NAUSEA OR VOMITING Stop: 09/17/25 05:43 Thiamine HCl (Thiamine 100 Mg Tablet) 100 mg PO BID DAVID Stop: 08/23/25 08:59 Discontinued Medications Haloperidol Lactate (Haloperidol Lact Inj 5 Mg/Ml Vial) 5 mg IM X1 ONE Stop: 08/18/25 03:06 Last Admin: 08/18/25 05:12 Dose: Not Given Sodium Chloride (Ns) 1,641 mls @ 1,641 mls/hr 30 ml/kg infuse over 60 min (1641 ml) IV .Q1H ONE Stop: 08/18/25 03:48 Last Infusion: 08/18/25 05:14 Dose: Infused Ceftriaxone Sodium/Dextrose (Rocephin/D5w 1gm Iv Premix) 1 gm in 50 mls @ 100 mls/hr IV X1 ONE Stop: 08/18/25 03:18 Last Admin: 08/18/25 03:21 Dose: 100 mls/hr Ipratropium Bent[place] (Ipratropium Rt 0.5 Mg/ 2.5 Ml Nebu) 0.5 mg INH X1 ONE Stop: 08/17/25 23:28 Last Admin: 08/17/25 23:52 Dose: 0.5 mg Ketorolac Tromethamine (Ketorolac Inj 30 Mg/Ml Vial) 30 mg IM X1 ONE Stop: 08/17/25 23:26 Last Admin: 08/17/25 23:39 Dose: 30 mg Ketorolac Tromethamine (Ketorolac Inj 30 Mg/Ml Vial) 30 mg IVP X1 ONE Stop: 08/18/25 04:11 Last Admin: 08/18/25 04:16 Dose: 30 mg Levalbuterol HCl (Levalbuterol Rt 0.63 Mg/3 Ml Nebu) 0.63 mg INH X1 ONE Stop: 08/17/25 23:26 Last Admin: 08/17/25 23:52 Dose: 0.63 mg Midazolam HCl (Midazolam Inj 1 Mg/Ml Vial 2 Ml) 5 mg IM X1 ONE Stop: 08/17/25 23:26 Last Admin: 08/17/25 23:39 Dose: 5 mg Midazolam HCl (Midazolam Inj 1 Mg/Ml Vial 2 Ml) 2 mg IM X1 ONE Stop: 08/18/25 03:06 Last Admin: 08/18/25 05:12 Dose: Not Given Assessment & Plan Plan This patient is a 55-year-old female with no significant past medical history who presents to [facility] ED on 08/17 with chief complaint of shortness of breath. Patient was admitted for management of alcohol withdrawal. #Alcohol withdrawal #History of alcohol abuse #History of liver mass? Patient noted to have drank a small bottle of vodka daily for many years, but decided to stop suddenly about 2 to 3 days ago before admission. Patient was noted to have shortness of breath, but was never put on any oxygen in the ED. Additionally, according to the patient's boyfriend, the patient was found to have a liver mass on CT abdomen pelvis at outside facility. 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 Patient noted to have right basilar pneumonia on chest x-ray, possibly aspiration pneumonia. Initially, patient was noted to have elevated WBC and a fever in ED. given the patient's acute agitation in the ED, ED physician was concerned about compliance with outpatient treatment as well. Diagnostic: Chest x-ray 08/17 shows early right base pneumonia PSI score 45 points, risk Class II, 0.6-0.9% mortality. Outpatient treatment reasonable, barring other factors affecting care. Blood culture collected 08/18, pending Treatment: Ceftriaxone 1 g daily (08/18?) Azithromycin 500 mg daily (08/18 - 08/20) DuoNebs as needed DVT Prophylaxis: Heparin GI Prophylaxis: N/A Bowel: N/A Diet: Regular Martel: N/A Lines: PIV Antibiotics: Ceftriaxone & Azithromycin Code Status: FULL Reason for Hospitalization: Alcohol withdrawal Other Barriers to Discharge: [facility] Patient plan of care was discussed with attending physician Dr. John Leblanc, PGY1 Attending Provider Attestation/Addendum I have examined the patient, reviewed labs and imaging findings, discussed the case with the resident(s), and reviewed entered orders. I agree with the plan of care as outlined in this note, with these additional summaries/recommendations: 55-year-old female with past medical history of alcohol use disorder who presents to the ED with chief complaint of shortness of breath. Patient found to have elevated base pneumonia. While in the ED, patient appeared agitated and was given midazolam and Haldol. Per patient's boyfriend, she is a daily alcohol drinker and decided to quit drinking 2 to 3 days prior to admission. On my evaluation, patient states that she has quit drinking in the past and has never experienced alcohol withdrawal seizures or severe symptoms other than shakiness, agitation, fatigue. She will be admitted for further management of community- acquired pneumonia and alcohol withdrawal syndrome. Mikey Lopez MD
[2025-08-18] MEDS: HEPARIN SOD INJ 5000 UNIT/ML VIAL SC ×2 (06:20→20:45)
[2025-08-18] MEDS: THIAMINE INJ 100 MG in SODIUM CHLORIDE 0.9% 50 ML 102 MG IV (06:20)
[2025-08-18] MEDS: AZITHROMYCIN INJ 500 MG in SODIUM CHLORIDE 0.9% 250 ML 250 ML 250 MG IV (06:51)
[2025-08-18 09:06] LABS: Collection Type, Urine Clean Catch
--- NOTE | 2025-08-18 09:12 | PC.NURSE ---
This RN spoke with Dr. Norwood to clarify if he want all 3 bags of Azithromycin given to pt. Per Dr. Norwood will update medication order
[2025-08-18] MEDS: FOLIC ACID 1 MG TABLET PO ×2 (09:22→20:44)
[2025-08-18] MEDS: THIAMINE 100 MG TABLET PO ×2 (09:22→20:44)
--- NOTE | 2025-08-18 09:37 | ESPR_ITS ---
<Statement entered by Shirlene Dykes MD - 08/20/25 08:03> I reviewed above note and agree with findings and plans. I have also personally examined the patient with medicine team and went over assessment and plan with medical team including public health internship and resident physician. <Statement entered by Renato Sanchez MD - 08/18/25 15:28> Patient admitted overnight for aspiration pneumonia and alcohol withdrawal. Patient is 55 y/o F with significant medical history for chronic alcohol use. Cultures are pending, we will continue Rocephin and Azithromycin. Patient denies withdrawal symptoms: hallucination and tremors. I discussed with and supervised the public health internship physician involved in the care of this patient. Patient assessment and plan was discussed with entire medicine team, including my attending. I agree with the assessment and plan as documented by public health internship doctor. Patient care was discussed with my attending physician Dr. Donis Sanchez, PGY-3 Documentation for date of: 08/18/25 Subjective Subjective Interval history: Patient seen at bedside this morning. She reports shortness of breath that began yesterday, associated with sharp pain starting in the right side of her neck radiating to the right chest and right upper quadrant, worsened by deep inspiration. She states she is taking shallow breaths due to pain. Endorses fevers, headache, and body aches. She denies alcohol withdrawal symptoms, including tremors, hallucinations, numbness, or tingling. Last alcohol intake was 4?5 days ago (approximately 2?3 shots of vodka). Denies chest pressure, palpitations, nausea, vomiting, abdominal distension, dysuria, or diarrhea. Exam Vital Signs Temp Pulse Resp BP Pulse Ox O2 Del Method 97.7 F 98 15 114/74 100 Room Air 08/18/25 09:24 08/18/25 09:24 08/18/25 09:24 08/18/25 09:24 08/18/25 09:24 08/18/25 09:24 Narrative Exam Physical Exam: General: Lethargic, no acute distress. Skin: Warm, dry, intact. Head: Normocephalic, atraumatic. Eye: Normal conjunctiva, PERRL. Cardiovascular: Regular rate and rhythm, no murmur, +S1/S2. Respiratory: Lungs are clear to auscultation, respirations unlabored, no crackles, no wheezing. Gastrointestinal: Soft, tender to palpation of RUQ with negative Germain's sign, non-distended. No guarding or rebound tenderness. Extremities: No edema, no cyanosis, no clubbing. 2+ radial pulse bilaterally, 2+ pedal pulse bilaterally. Neuro: No focal deficits observed. Conversant, moving all extremities. No overt cerebellar signs/incoordination. Psychiatric: Non-cooperative, flat affect. Objective Labs 08/18/25 03:10 08/18/25 03:10 Labs: Laboratory Results - last 24 hr 08/18/25 03:10 WBC 15.3 H RBC 4.40 Hgb 13.1 Hct 40.1 MCV 91 MCH 29.8 MCHC 32.7 RDW Std Deviation 42.8 Plt Count 264 Neut % (Auto) 86 H Lymph % (Auto) 7 L [place] % (Auto) 7 Eos % (Auto) 0 Baso % (Auto) 0 Neut # (Auto) 13.1 H Lymph # (Auto) 1.1 [place] # (Auto) 1.1 H Eos # (Auto) 0.0 Baso # (Auto) 0.0 Immature Gran # (Auto) 0.05 H Absolute Nucleated RBC 0.00 Immature Gran % 0 Nucleated RBC % 0 PT 10.8 INR 1.0 APTT 27.5 Sodium 139 Potassium 3.9 Chloride 102 Carbon Dioxide 25.8 Anion Gap 11 BUN 14 Creatinine 0.6 Estim Creat Clear Calc 91.5 eGFR > 60 BUN/Creatinine Ratio 23 H Glucose 94 Calculated Osmolality 278 Lactic Acid 1.2 Calcium 10.2 Corrected Calcium 10.2 H Phosphorus 4.2 Magnesium 2.0 Total Bilirubin 1.0 AST 61 H ALT 104 H Alkaline Phosphatase 192 H Lactate Dehydrogenase 242 Troponin I < 0.020 B-Natriuretic Peptide < 20 Total Protein 7.4 Albumin 4.5 Globulin 2.9 Albumin/Globulin Ratio 1.6 Lipase 25 Procalcitonin 0.17 Quality Measures Quality Measures VTE prophylaxis Assessment & Plan Assessment Current Active Medications: Generic Name Dose Route Start Last Admin Trade Name Freq PRN Reason Stop Dose Admin Acetaminophen 650 mg 08/18/25 05:44 Acetaminophen 325 Mg Tablet PO 09/17/25 05:43 Q6H PRN Fever >101.5 or pain 1-3 Albuterol/Ipratropium 3 ml 08/18/25 05:44 Albuterol/Ipratropium (Duoneb) Rt [place] 3 Ml Nebu INH 09/17/25 05:43 Q6HR PRN SHORTNESS OF BREATH OR WHEEZE Diazepam 2.5 mg 08/18/25 05:51 Diazepam Inj 5 Mg/Ml Vial 2 Ml IVP 08/23/25 05:50 Q2HR PRN CIWA SCORE 8-13 Diazepam 5 mg 08/18/25 05:51 Diazepam Inj 5 Mg/Ml Vial 2 Ml IVP 08/23/25 05:50 Q2HR PRN CIWA SCORE 14-19 Diazepam 10 mg 08/18/25 05:51 Diazepam Inj 5 Mg/Ml Vial 2 Ml IVP 08/23/25 05:50 Q2HR PRN CIWA SCORE 20-25 Diazepam 10 mg 08/18/25 05:56 Diazepam Inj 5 Mg/Ml Vial 2 Ml IVP X1 PRN Breakthrough Agitation Folic Acid 1 mg 08/18/25 09:00 08/18/25 09:22 Folic Acid 1 Mg Tablet PO 08/23/25 08:59 1 mg BID DAVID Administration Heparin Sodium (Porcine) 5,000 unit 08/18/25 05:45 08/18/25 06:20 Heparin Sod Inj 5000 Unit/Ml Vial SC 09/01/25 05:44 5,000 unit Q12H DAVID Administration Ceftriaxone Sodium/Dextrose 1 gm in 50 mls @ 100 mls/hr 08/19/25 04:00 Rocephin/D5w 1gm Iv Premix IV 08/26/25 03:59 QDAY DAVID Azithromycin 500 mg/ Sodium 250 mls @ 250 mls/hr 08/19/25 09:00 Chloride IV 08/21/25 08:59 QDAY DAVID Lorazepam 0.5 mg 08/18/25 05:56 Lorazepam 0.5 Mg Tablet PO 08/23/25 05:55 Q4HR PRN CIWA Score 2-7 Ondansetron HCl 4 mg 08/18/25 06:15 Ondansetron Inj 2 Mg/Ml Inj 2 Ml IVP 09/17/25 05:43 Q6HR PRN NAUSEA OR VOMITING Protocol Thiamine HCl 100 mg 08/18/25 09:00 08/18/25 09:22 Thiamine 100 Mg Tablet PO 08/23/25 08:59 100 mg BID DAVID Administration Plan 55-year-old female with chronic alcohol use admitted for alcohol withdrawal and early right basilar pneumonia, now hemodynamically stable on room air with improving withdrawal symptoms but ongoing pleuritic right-sided chest/RUQ pain. #Early Right Basilar Pneumonia #Possible Aspiration Pneumonia #Pleuritic Chest Pain Right-sided pleuritic pain and leukocytosis with CXR showing early RLL pneumonia PSI score 45 points, risk Class II, 0.6-0.9% mortality. Outpatient treatment reasonable, barring other factors affecting care. Stable on room air without sepsis. Pain Likely secondary to pneumonia. Troponin, BNP, and lactate negative, making cardiac etiology less likely. Plan: * Continue ceftriaxone 1 g IV daily * Continue azithromycin 500 mg daily (planned 3-day course) * Monitor fever curve and WBC * Incentive spirometry * Analgesia to allow deeper breathing * Blood cultures pending * Treat underlying pneumonia * Pain control with acetaminophen * DuoNebs as needed # Alcohol Use Disorder with Recent Cessation # Alcohol Withdrawal Patient noted to have drank a small bottle of vodka daily for many years, but decided to stop suddenly about 2 to 3 days ago before admission. Patient was noted to have shortness of breath, but was never put on any oxygen in the ED. 08/18: History of chronic daily vodka use; last drink 4?5 days ago with no active withdrawal symptoms today. Plan: * Continue CIWA protocol, currently low scores * Thiamine 100 mg daily, folic acid supplementation * Seizure precautions * Alcohol cessation counseling once medically stable # Abnormal Liver Enzymes # Hepatomegaly #History of liver mass? Elevated AST/ALT and Alk Phos with ultrasound showing hepatomegaly concerning for chronic liver disease, likely alcohol-related. Additionally, according to the patient's boyfriend, the patient was found to have a liver mass on CT abdomen pelvis at outside facility. Plan: * Trend LFTs daily * Avoid hepatotoxic medications * Hepatitis panel pending * Outpatient hepatology follow-up recommended Health Maintenance: DVT Prophylaxis: Heparin Diet: Regular Lines: PIV Code Status: Full Disposition: Continue inpatient care for pneumonia treatment and CIWA monitoring ----- Plan discussed with attending physician Dr. Dykes and senior resident Dr. Daniel Caban MD PGY-1 Internal Medicine
[2025-08-18 09:40] LABS: Bilirubin,Urine Negative (Negative); Blood,Urine 1+ (Negative); Color,Urine Yellow (Lt Yel-Yel); Glucose, Urine Negative (Negative); Ketones,Urine 3+ (Negative); Leukocyte Esterase,Urine Positive (Negative); Nitrite,Urine Positive (Negative); PH,Urine 5.5 (5.0-7.0); Protein,Urine Trace (Neg - Trace); RBC,Urine 4 /hpf (0-3); Specific Gravity,Urine 1.028 (1.001-1.035); Squamous Epithelial Cell,Urine < 1 /hpf (0-5); Urobilinogen,Urine Negative mg/dL (0.0-1.0); WBC,Urine 9 /hpf (0-5)
[2025-08-18 09:41] LABS: Culture Indicated,Urine Yes
[2025-08-18 09:43] LABS: Bacteria,Urine 2+
[2025-08-18 09:44] LABS: Clarity,Urine Hazy (Clear/Hazy)
[2025-08-18] MEDS: ACETAMINOPHEN 325 MG TABLET 650 MG PO (09:48)
--- NOTE | 2025-08-18 18:00 | PC.NURSE ---
pt complains of chest pain at this time. This RN offered pt PRN Tylenol but pt refused and states she would prefer a breathing treatment. This RN attempted to call RT but no answer at this time
--- NOTE | 2025-08-18 18:03 | PC.NURSE ---
This RN attempted to give report to tele. Per RN to call back in a few minutes
--- NOTE | 2025-08-18 18:47 | PC.NURSE ---
received patient from ED at 18:48. Patient is a/o x4. received report from DEBRA Gay
[2025-08-19] VITALS (7 sets, daily range): BP systolic 111–139; BP diastolic 70–85; PULSE 89–113; RESP 18–25; TEMP 36.1–37.7; O2SAT 95–99; BMI 24.0
[2025-08-19] MEDS: Vancomycin Inj 1,000 MG in SODIUM CHLORIDE 0.9% 250 ML 250 ML 150 MG IV (03:14)
[2025-08-19 03:30] LABS: Basophils # (Auto) 0.0 Thou/mm3 (0.0-0.2); Basophils % (Auto) 0 % (0-2.5); Eosinophils # (Auto) 0.0 Thou/mm3 (0.0-0.5); Eosinophils % (Auto) 0 % (0-10); Hematocrit 36.5 % (36.0-46.0); Hemoglobin 12.0 g/dL (12.0-16.0); Immature Granulocytes Auto 0.02 Thou/mm3 (0.00-0.00); Lymphocytes # (Auto) 1.5 Thou/mm3 (1.0-4.8); Lymphocytes % (Auto) 18 % (10-50); Mean Corpuscular HGB Conc 32.9 g/dl (31.0-37.0); Mean Corpuscular Hemoglobin 29.9 pg (25.0-35.0); Mean Corpuscular Volume 91 fL (80-100); Monocytes # (Auto) 0.6 Thou/mm3 (0.0-0.8); Monocytes % (Auto) 7 % (0-12); Neutrophils # (Auto) 5.9 Thou/mm3 (1.8-7.7); Neutrophils % (Auto) 74 % (37-80); Nucleated Red Blood Cell # 0.00 Thou/mm3 (0.00-0.00); Nucleated Red Blood Cell % 0 /100 WBC (0); Platelet Count 260 Thou/mm3 (140-440); RDW Standard Deviation 42.9 fL (36.4-46.3); Red Blood Count 4.01 Miln/mm3 (4.00-5.20); White Blood Count 8.1 Thou/mm3 (3.6-11.0)
[2025-08-19 03:47] LABS: Alanine Aminotransferase 378 U/L (10-49); Albumin, Serum 3.8 gm/dL (3.5-5.0); Albumin/Globulin Ratio 1.4 (1.2-2.2); Alkaline Phosphatase 470 U/L (46-116); Anion Gap 7 (7-16); Aspartate Amino Transferase 429 U/L (0-34); BUN/Creatinine Ratio 17 Ratio (12-20); Bilirubin,Total 1.1 mg/dL (0.3-1.2); Blood Urea Nitrogen 10 mg/dL (9-23); Calcium 9.3 mg/dL (8.3-10.6); Calcium (Corrected) 9.5 mg/dL (8.5-10.1); Carbon Dioxide 25.6 mMol/L (20.0-31.0); Chloride 106 mMol/L (98-107); Creatinine (Component) 0.6 mg/dL (0.6-1.3); Estimated Creatinine Clearance 91.5 mL/min (>60); Globulin 2.8 gm/dL (2.3-3.5); Glucose 95 mg/dL (74-106); Magnesium 2.0 mg/dL (1.6-2.6); Osmolality,Calculated 276 (275-295); Phosphorous 2.2 mg/dL (2.4-5.1); Potassium 3.7 mMol/L (3.4-5.1); Sodium 139 mMol/L (136-145); Total Protein 6.6 gm/dL (5.7-8.2); eGFR > 60 See Note
[2025-08-19] MEDS: HEPARIN SOD INJ 5000 UNIT/ML VIAL SC ×2 (05:02→17:28)
[2025-08-19] MEDS: cefTRIAXone/D5w 1gm IV premix 1 GM/50 ML BAG IV (05:58)
[2025-08-19] MEDS: POT PHOS 15 mMol in NS 250 ML 15 MMOL/250 ML BAG 62.5 MMOL IV (07:58)
--- NOTE | 2025-08-19 08:04 | ESPR_ITS ---
<Statement entered by Shirlene Dykes MD - 08/20/25 14:33> I reviewed above note and agree with findings and plans. I have also personally examined the patient with medicine team and went over assessment and plan with medical team including campus interviews intern and resident physician. <Statement entered by Michael Shrestha MD - 08/19/25 12:20> patient was examined and case was reviewed with team including attending physician. Note reviewed, I agree with most of its contents and agree with the patient's care as documented by Dr. Sanchez Patient seen today at the bedside found awake, alert, orientedx3. No overnight events reported. Patient endorses that shortness of breath has improved denies any withdrawal symptoms at this time denies any bugs crawling around his skin, auditory or visual hallucinations. Vitals and labs reviewed. Liver enzymes continues to be uptrending likely in the setting of alcohol use. hepatitis panel and urine toxicology ordered. Will continue with [facility] protocol for alcohol withdrawal and IV antibiotics for community-acquired pneumonia/aspiration. Possible discharge in the next 24-48 hours Case discussed with my attending Dr. Donis Shrestha MD PGY-2 Disclaimer: Despite multiple revisions, due to the dictation software being used, the document bellow may not be free of grammatical errors including phonetic/typographic errors. However, this does not deter from our commitment to providing health care in the patient's best interest in mind. Documentation for date of: 08/19/25 Subjective Subjective Interval history: - No acute events overnight. - Patient seen and examined at the bedside this morning. - Patient reports improved shortness of breath and pleuritic chest pain since yesterday. She has been using incentive spirometry and was encouraged to continue. Air movement improved on auscultation. - Liver enzymes are uptrending. [place] discriminant function is < 32, therefore steroids will not be started. Findings are most consistent with alcoholic liver injury. Will continue to monitor. Hepatitis panel is pending. Toxicology screen has been ordered. - Patient denies urinary symptoms. Urinalysis notable for bacteria and leukocyte esterase, consistent with asymptomatic bacteriuria. No treatment indicated at this time. Exam Vital Signs Temp Pulse Resp BP Pulse Ox O2 Del Method 98.1 F 96 18 137/84 H 96 Room Air 08/19/25 04:00 08/19/25 04:00 08/19/25 04:00 08/19/25 04:00 08/19/25 04:00 08/19/25 04:00 Narrative Exam Physical Exam General: Lethargic, no acute distress. HEENT: Normocephalic, atraumatic, extraocular movements intact, pupils equal and reactive to light. Heart: Regular rate and rhythm, no murmurs, rubs or gallops. Lungs: Lungs are clear to auscultation, respirations unlabored, no crackles, no wheezing. Abdomen: Soft, nondistended, nontender. No guarding or rebound tenderness. Neurologic: No gross neurological deficit, and patient able to move all 4 extremities. Extremities: No edema, clubbing or cyanosis. Skin: Warm and dry without rashes. Psychiatric: Cooperative, appropriate mood and affect. Objective Labs 08/19/25 03:14 08/19/25 03:14 Labs: Laboratory Results - last 24 hr 08/18/25 08/19/25 09:00 03:14 WBC 8.1 D RBC 4.01 Hgb 12.0 Hct 36.5 MCV 91 MCH 29.9 MCHC 32.9 RDW Std Deviation 42.9 Plt Count 260 Neut % (Auto) 74 Lymph % (Auto) 18 [place] % (Auto) 7 Eos % (Auto) 0 Baso % (Auto) 0 Neut # (Auto) 5.9 Lymph # (Auto) 1.5 Jay # (Auto) 0.6 Eos # (Auto) 0.0 Baso # (Auto) 0.0 Immature Gran # (Auto) 0.02 H Absolute Nucleated RBC 0.00 Immature Gran % 0 Nucleated RBC % 0 Sodium 139 Potassium 3.7 Chloride 106 Carbon Dioxide 25.6 Anion Gap 7 BUN 10 Creatinine 0.6 Estim Creat Clear Calc 91.5 eGFR > 60 BUN/Creatinine Ratio 17 Glucose 95 Calculated Osmolality 276 Calcium 9.3 Corrected Calcium 9.5 Phosphorus 2.2 L Magnesium 2.0 Total Bilirubin 1.1 AST 429 H ALT 378 H Alkaline Phosphatase 470 H D Total Protein 6.6 Albumin 3.8 D Globulin 2.8 Albumin/Globulin Ratio 1.4 Ur Collection Type Clean Catch Urine Color Yellow Urine Clarity Hazy Urine pH 5.5 Ur Specific [place] 1.028 Urine Protein Trace Urine Glucose (UA) Negative Urine Ketones 3+ A Urine Blood 1+ A Urine Nitrite Positive Urine Bilirubin Negative Urine Urobilinogen (Auto) Negative Ur Leukocyte Esterase Positive Urine RBC 4 H Urine WBC 9 H Ur Squamous Epith Cells < 1 Urine Bacteria 2+ A Ur Culture Indicated? Yes Quality Measures Quality Measures VTE prophylaxis Assessment & Plan Assessment Current Active Medications: Generic Name Dose Route Start Last Admin Trade Name Freq PRN Reason Stop Dose Admin Acetaminophen 650 mg 08/18/25 05:44 08/18/25 09:48 Acetaminophen 325 Mg Tablet PO 09/17/25 05:43 650 mg Q6H PRN Administration Fever >101.5 or pain 1-3 Albuterol/Ipratropium 3 ml 08/18/25 05:44 Albuterol/Ipratropium (Duoneb) Rt [place] 3 Ml Nebu INH 09/17/25 05:43 Q6HR PRN SHORTNESS OF BREATH OR WHEEZE Diazepam 2.5 mg 08/18/25 05:51 Diazepam Inj 5 Mg/Ml Vial 2 Ml IVP 08/23/25 05:50 Q2HR PRN CIWA SCORE 8-13 Diazepam 5 mg 08/18/25 05:51 Diazepam Inj 5 Mg/Ml Vial 2 Ml IVP 08/23/25 05:50 Q2HR PRN CIWA SCORE 14-19 Diazepam 10 mg 08/18/25 05:51 Diazepam Inj 5 Mg/Ml Vial 2 Ml IVP 08/23/25 05:50 Q2HR PRN CIWA SCORE 20-25 Diazepam 10 mg 08/18/25 05:56 Diazepam Inj 5 Mg/Ml Vial 2 Ml IVP X1 PRN Breakthrough Agitation Folic Acid 1 mg 08/18/25 09:00 08/18/25 20:44 Folic Acid 1 Mg Tablet PO 08/23/25 08:59 1 mg BID DAVID Administration Heparin Sodium (Porcine) 5,000 unit 08/18/25 05:45 08/19/25 05:02 Heparin Sod Inj 5000 Unit/Ml Vial SC 09/01/25 05:44 5,000 unit Q12H DAVID Administration Ceftriaxone Sodium/Dextrose 1 gm in 50 mls @ 100 mls/hr 08/19/25 04:00 08/19/25 05:58 Rocephin/D5w 1gm Iv Premix IV 08/26/25 03:59 100 mls/hr QDAY DAVID Administration Azithromycin 500 mg/ Sodium 250 mls @ 250 mls/hr 08/19/25 09:00 Chloride IV 08/21/25 08:59 QDAY DAVID Potassium Phosphate 15 mmol in 250 mls @ 62.5 mls/hr 08/19/25 06:02 08/19/25 07:58 Pot Phos 15 Mmol In Ns 250 Ml IV 08/19/25 10:01 62.5 mls/hr X1 ONE Administration Lorazepam 0.5 mg 08/18/25 05:56 08/18/25 20:45 Lorazepam 0.5 Mg Tablet PO 08/23/25 05:55 0.5 mg Q4HR PRN Administration CIWA Score 2-7 Ondansetron HCl 4 mg 08/18/25 06:15 Ondansetron Inj 2 Mg/Ml Inj 2 Ml IVP 09/17/25 05:43 Q6HR PRN NAUSEA OR VOMITING Protocol Thiamine HCl 100 mg 08/18/25 09:00 08/18/25 20:44 Thiamine 100 Mg Tablet PO 08/23/25 08:59 100 mg BID DAVID Administration Plan 55-year-old female with chronic alcohol use disorder presented for shortness of breath and pleuritic right-sided chest, admitted for alcohol withdrawal and pneumonia. #Early right basilar pneumonia #Possible aspiration pneumonia #Pleuritic right sided chest pain #Leukocytosis (resolved) - Right-sided pleuritic pain and leukocytosis with CXR showing early RLL pneumonia. - PSI score 45 points, risk Class II, 0.6-0.9% mortality. Outpatient treatment reasonable, barring other factors affecting care. - Stable on room air without sepsis. - Pain likely secondary to pneumonia. Troponin, BNP, and lactate negative, making cardiac etiology less likely. - WBC 15.3 --> 8.1. Plan: * Continue Ceftriaxone 1 g IV daily (08/18-) * Continue azithromycin 500 mg daily, planned 3-day course (08/18-08/20). * Incentive spirometry. * Blood cultures pending. * Treat underlying pneumonia. * Pain control with acetaminophen. * DuoNebs as needed. * Lidocaine patch. #Alcohol use disorder with recent cessation #Alcohol withdrawal - Patient noted to have drank a small bottle of vodka daily for many years. - Patient was noted to have shortness of breath, but was never put on any oxygen in the ED. - Last drink 4?5 days ago. Plan: * Continue CIWA protocol, currently low scores. * Thiamine 100 mg daily, folic acid supplementation. * Seizure precautions. * Alcohol cessation counseling once medically stable. #Transaminitis, likely alcohol-associated liver injury #Hepatomegaly #History of liver mass? - AST, ALT and Alk Phos uptrending. - AST 61 --> 429. - ALT 104 --> 378. - ALP 192 --> 470. - Abdomen ultrasound 08/18: Normal gallbladder. Normal common bile duct. Moderate hepatomegaly, suspect primary hepatocellular disease. Likely alcohol- related. - Additionally, according to the patient's boyfriend, the patient was found to have a liver mass on CT abdomen pelvis at outside facility. - [facility] discriminant function is < 32, therefore steroids will not be started at this time. - No signs of alcoholic liver failure at this time (normal bilirubin, no coagulopathy, no encephalopathy, normal albumin). Plan: * Trend LFTs daily. * Avoid hepatotoxic medications. * Hepatitis panel pending. * Outpatient hepatology follow-up recommended. #Asymptomatic urinary tract infection - Patient denies urinary symptoms. - Urinalysis notable for bacteria and leukocyte esterase, consistent with asymptomatic bacteriuria. Plan: * No treatment indicated at this time. * Urine culture pending. Health Maintenance Disposition: tele for CIWA and possible pneumonia DVT prophylaxis: Heparin 5,000 U subQ GI prophylaxis: None Diet: Regular Martel: Scott will DC Lines: Peripheral IV CODE STATUS: FULL --- Patient plan of care was discussed with the senior resident, Dr. Cuco Shrestha, and attending physician, Dr. Dykes. Ger Sanchez DO PGY-1
[2025-08-19] MEDS: AZITHROMYCIN INJ 500 MG in SODIUM CHLORIDE 0.9% 250 ML 250 ML 250 MG IV (10:00)
[2025-08-19] MEDS: THIAMINE 100 MG TABLET PO ×2 (10:00→20:24)
[2025-08-19] MEDS: FOLIC ACID 1 MG TABLET PO ×2 (10:00→20:24)
[2025-08-19] MEDS: LIDOCAINE 5% 1 PATCH TOP (14:10)
[2025-08-19 20:36] LABS: Hepatitis A Antibody IgM Non Reactive (Non React); Hepatitis B Core Antibody IgM Non Reactive (Non React); Hepatitis B Surface Antigen Non Reactive (Non React); Hepatitis C Antibody Reactive (Non React)
[2025-08-20] VITALS (8 sets, daily range): BP systolic 100–138; BP diastolic 67–93; PULSE 5–104; RESP 16–21; TEMP 36.1–36.7; O2SAT 94–98; BMI 24.3
[2025-08-20] MEDS: HYDROmorphone INJ 2 MG/ML VIAL 0.5 MG IVP ×2 (03:45→10:16)
[2025-08-20] MEDS: ALBUTEROL/IPRATROPIUM (Duoneb) RT SOL 3 ML NEBU INH (03:46)
[2025-08-20] MEDS: HEPARIN SOD INJ 5000 UNIT/ML VIAL SC ×2 (05:28→17:04)
[2025-08-20 06:15] LABS: Basophils # (Auto) 0.1 Thou/mm3 (0.0-0.2); Basophils % (Auto) 1 % (0-2.5); Eosinophils # (Auto) 0.1 Thou/mm3 (0.0-0.5); Eosinophils % (Auto) 2 % (0-10); Hematocrit 41.0 % (36.0-46.0); Hemoglobin 13.4 g/dL (12.0-16.0); Immature Granulocytes Auto 0.03 Thou/mm3 (0.00-0.00); Lymphocytes # (Auto) 1.8 Thou/mm3 (1.0-4.8); Lymphocytes % (Auto) 30 % (10-50); Mean Corpuscular HGB Conc 32.7 g/dl (31.0-37.0); Mean Corpuscular Hemoglobin 30.0 pg (25.0-35.0); Mean Corpuscular Volume 92 fL (80-100); Monocytes # (Auto) 0.6 Thou/mm3 (0.0-0.8); Monocytes % (Auto) 10 % (0-12); Neutrophils # (Auto) 3.4 Thou/mm3 (1.8-7.7); Neutrophils % (Auto) 56 % (37-80); Nucleated Red Blood Cell # 0.00 Thou/mm3 (0.00-0.00); Nucleated Red Blood Cell % 0 /100 WBC (0); Platelet Count 304 Thou/mm3 (140-440); RDW Standard Deviation 43.3 fL (36.4-46.3); Red Blood Count 4.46 Miln/mm3 (4.00-5.20); White Blood Count 6.0 Thou/mm3 (3.6-11.0)
[2025-08-20 06:44] LABS: Alanine Aminotransferase 382 U/L (10-49); Albumin, Serum 3.9 gm/dL (3.5-5.0); Albumin/Globulin Ratio 1.3 (1.2-2.2); Alkaline Phosphatase 485 U/L (46-116); Anion Gap 11 (7-16); Aspartate Amino Transferase 324 U/L (0-34); BUN/Creatinine Ratio 20 Ratio (12-20); Bilirubin,Total 0.4 mg/dL (0.3-1.2); Blood Urea Nitrogen 12 mg/dL (9-23); Calcium 9.7 mg/dL (8.3-10.6); Calcium (Corrected) 9.8 mg/dL (8.5-10.1); Carbon Dioxide 25.5 mMol/L (20.0-31.0); Chloride 108 mMol/L (98-107); Creatinine (Component) 0.6 mg/dL (0.6-1.3); Estimated Creatinine Clearance 91.5 mL/min (>60); Globulin 2.9 gm/dL (2.3-3.5); Glucose 102 mg/dL (74-106); Magnesium 2.0 mg/dL (1.6-2.6); Osmolality,Calculated 286 (275-295); Phosphorous 3.3 mg/dL (2.4-5.1); Potassium 3.9 mMol/L (3.4-5.1); Sodium 144 mMol/L (136-145); Total Protein 6.8 gm/dL (5.7-8.2); eGFR > 60 See Note
[2025-08-20] MEDS: THIAMINE 100 MG TABLET PO ×2 (09:01→20:36)
[2025-08-20] MEDS: FOLIC ACID 1 MG TABLET PO ×2 (09:01→20:36)
[2025-08-20] MEDS: cefTRIAXone/D5w 1gm IV premix 1 GM/50 ML BAG IV (09:01)
--- NOTE | 2025-08-20 09:46 | XR_ITS ---
EXAMINATION: AP chest single view TECHNIQUE: AP portable semiupright chest single view Date and time: August 20, 2025, 1007 hours, comparison August 17, 2025 INDICATIONS: Coughing congestion this week. FINDINGS: Significant pneumonia right base Normal heart size Peter structures are intact IMPRESSION: Significant pneumonia right base
[2025-08-20] MEDS: AZITHROMYCIN INJ 500 MG in SODIUM CHLORIDE 0.9% 250 ML 250 ML 250 MG IV (10:11)
--- NOTE | 2025-08-20 11:43 | ESPR_ITS ---
<Statement entered by Shirlene Dykes MD - 08/31/25 07:43> I reviewed above note and agree with findings and plans. I have also personally examined the patient with medicine team and went over assessment and plan with medical team including advertising intern and resident physician. <Statement entered by Michael Shrestha MD - 08/20/25 14:34> Patient was examined and case was reviewed with team including attending physician. Note reviewed, I agree with most of its contents and agree with the patient's care as documented by Dr. Sanchez Patient seen today at the bedside found awake, alert, orientedx3. No overnight events reported. Complaints of right sided pleuritic chest pain. Vital signs and labs reviewed. Will order multi-modal analgesia for her pain as, opiate medications are not helping. Additionally CXR ordered showed no new change. Will continue current IV Antibiotic therapy for aspiration pneumonia. Liver enzymes are elevated, Hepatitis panel ordered showed positive Hepatitis C, viral load ordered. Utox showed positive methamphetamine and marijuana originally denied at the time of admission. Will continue to follow. Case discussed with my attending Dr. Donis Shrestha MD PGY-2 Disclaimer: Despite multiple revisions, due to the dictation software being used, the document bellow may not be free of grammatical errors including phonetic/typographic errors. However, this does not deter from our commitment to providing health care in the patient's best interest in mind. Documentation for date of: 08/20/25 Subjective Subjective Interval history: - Overnight, the patient received hydromorphone 0.5 mg for right-sided chest pain with reported improvement in symptoms. - Patient was seen and examined at the bedside this morning. She continues to report right-sided pain originating in the right neck and radiating down the chest to the hip, similar in character to the pain at the time of admission. The pain worsens with deep inspiration and improves with applied pressure. Chest X- ray demonstrated significant right basilar pneumonia. The patient was encouraged to continue incentive spirometry. Pain management will continue with ibuprofen and acetaminophen. Continue Ceftriaxone and Azithromycin. - Hepatitis C antibody is positive. RNA testing is pending to check for active infection. - Toxicology screen is positive for opiates, amphetamines/methamphetamines, and marijuana. Exam Vital Signs Temp Pulse Resp BP Pulse Ox O2 Del Method 97.2 F 88 18 114/67 94 L Room Air 08/20/25 08:00 08/20/25 08:00 08/20/25 08:00 08/20/25 08:00 08/20/25 08:00 08/20/25 08:00 Narrative Exam Physical Exam General: No acute distress. HEENT: Normocephalic, atraumatic, extraocular movements intact, pupils equal and reactive to light. Heart: Regular rate and rhythm, no murmurs, rubs or gallops. Lungs: Diminished lung sounds, deep breaths limited by pain. Abdomen: Soft, nondistended. Mild tenderness on deep palpation to right side of abdomen. No guarding or rebound tenderness. Neurologic: No gross neurological deficit, and patient able to move all 4 extremities. Extremities: No edema, clubbing or cyanosis. Skin: Warm and dry without rashes. Psychiatric: Cooperative, appropriate mood and affect. Objective Labs 08/20/25 04:25 08/20/25 04:25 Labs: Laboratory Results - last 24 hr 08/18/25 08/20/25 03:10 04:25 WBC 6.0 RBC 4.46 Hgb 13.4 Hct 41.0 MCV 92 MCH 30.0 MCHC 32.7 RDW Std Deviation 43.3 Plt Count 304 D Neut % (Auto) 56 Lymph % (Auto) 30 [place] % (Auto) 10 Eos % (Auto) 2 Baso % (Auto) 1 Neut # (Auto) 3.4 Lymph # (Auto) 1.8 [place] # (Auto) 0.6 Eos # (Auto) 0.1 Baso # (Auto) 0.1 Immature Gran # (Auto) 0.03 H Absolute Nucleated RBC 0.00 Immature Gran % 1 H Nucleated RBC % 0 Sodium 144 Potassium 3.9 Chloride 108 H Carbon Dioxide 25.5 Anion Gap 11 BUN 12 Creatinine 0.6 Estim Creat Clear Calc 91.5 eGFR > 60 BUN/Creatinine Ratio 20 Glucose 102 Calculated Osmolality 286 Calcium 9.7 Corrected Calcium 9.8 Phosphorus 3.3 Magnesium 2.0 Total Bilirubin 0.4 D AST 324 H ALT 382 H Alkaline Phosphatase 485 H Total Protein 6.8 Albumin 3.9 Globulin 2.9 Albumin/Globulin Ratio 1.3 Hepatitis A IgM Ab Non Reactive Hep Bs Antigen Non Reactive Hep B Core IgM Ab Non Reactive Hepatitis C Antibody Reactive A Quality Measures Quality Measures VTE prophylaxis Assessment & Plan Assessment Current Active Medications: Generic Name Dose Route Start Last Admin Trade Name Freq PRN Reason Stop Dose Admin Acetaminophen 650 mg 08/18/25 05:44 08/18/25 09:48 Acetaminophen 325 Mg Tablet PO 09/17/25 05:43 650 mg Q6H PRN Administration Fever >101.5 or pain 1-3 Albuterol/Ipratropium 3 ml 08/18/25 05:44 08/20/25 03:46 Albuterol/Ipratropium (Duoneb) Rt [place] 3 Ml Nebu INH 09/17/25 05:43 3 ml Q6HR PRN Administration SHORTNESS OF BREATH OR WHEEZE Diazepam 2.5 mg 08/18/25 05:51 Diazepam Inj 5 Mg/Ml Vial 2 Ml IVP 08/23/25 05:50 Q2HR PRN CIWA SCORE 8-13 Diazepam 5 mg 08/18/25 05:51 Diazepam Inj 5 Mg/Ml Vial 2 Ml IVP 08/23/25 05:50 Q2HR PRN CIWA SCORE 14-19 Diazepam 10 mg 08/18/25 05:51 Diazepam Inj 5 Mg/Ml Vial 2 Ml IVP 08/23/25 05:50 Q2HR PRN CIWA SCORE 20-25 Diazepam 10 mg 08/18/25 05:56 Diazepam Inj 5 Mg/Ml Vial 2 Ml IVP X1 PRN Breakthrough Agitation Folic Acid 1 mg 08/18/25 09:00 08/20/25 09:01 Folic Acid 1 Mg Tablet PO 08/23/25 08:59 1 mg BID DAVID Administration Heparin Sodium (Porcine) 5,000 unit 08/18/25 05:45 08/20/25 05:28 Heparin Sod Inj 5000 Unit/Ml Vial SC 09/01/25 05:44 5,000 unit Q12H DAVID Administration Ceftriaxone Sodium/Dextrose 1 gm in 50 mls @ 100 mls/hr 08/19/25 04:00 08/20/25 09:01 Rocephin/D5w 1gm Iv Premix IV 08/26/25 03:59 100 mls/hr QDAY DAVID Administration Azithromycin 500 mg/ Sodium 250 mls @ 250 mls/hr 08/19/25 09:00 08/20/25 10:11 Chloride IV 08/21/25 08:59 250 mls/hr QDAY DAVID Administration Lorazepam 0.5 mg 08/18/25 05:56 08/18/25 20:45 Lorazepam 0.5 Mg Tablet PO 08/23/25 05:55 0.5 mg Q4HR PRN Administration CIWA Score 2-7 Ondansetron HCl 4 mg 08/18/25 06:15 Ondansetron Inj 2 Mg/Ml Inj 2 Ml IVP 09/17/25 05:43 Q6HR PRN NAUSEA OR VOMITING Protocol Thiamine HCl 100 mg 08/18/25 09:00 08/20/25 09:01 Thiamine 100 Mg Tablet PO 08/23/25 08:59 100 mg BID DAVID Administration Plan 55-year-old female with chronic alcohol use disorder presented for shortness of breath and pleuritic right-sided chest, admitted for alcohol withdrawal and pneumonia. #Early right basilar pneumonia #Possible aspiration pneumonia #Pleuritic right sided chest pain #Leukocytosis (resolved) - Right-sided pleuritic pain and leukocytosis with CXR showing early RLL pneumonia. - PSI score 45 points, risk Class II, 0.6-0.9% mortality. Outpatient treatment reasonable, barring other factors affecting care. - Stable on room air without sepsis. - Pain likely secondary to pneumonia. Troponin, BNP, and lactate negative, making cardiac etiology less likely. - WBC 15.3 --> 8.1. Plan: * Continue Ceftriaxone 1 g IV daily (08/18-). * Continue Azithromycin 500 mg daily (08/18-08/21). * Incentive spirometry. * Blood cultures pending. Preliminary with no growth. * Pain control with acetaminophen and ibuprofen. * DuoNebs as needed. #Alcohol use disorder with recent cessation #Alcohol withdrawal - Patient noted to have drank a small bottle of vodka daily for many years. - Patient was noted to have shortness of breath, but was never put on any oxygen in the ED. - Last drink 4?5 days ago on day of admission. Plan: * Continue CIWA protocol, currently low scores. * Thiamine 100 mg daily, folic acid supplementation. * Seizure precautions. * Alcohol cessation counseling once medically stable. #Transaminitis, likely alcohol-associated liver injury #Hepatomegaly #History of liver mass? - AST, ALT and Alk Phos uptrending. - AST 61 --> 429 --> 324. - ALT 104 --> 378 --> 382. - ALP 192 --> 470 --> 485. - Abdomen ultrasound 08/18: Normal gallbladder. Normal common bile duct. Moderate hepatomegaly, suspect primary hepatocellular disease. Likely alcohol- related. - Additionally, according to the patient's boyfriend, the patient was found to have a liver mass on CT abdomen pelvis at outside facility. - [facility] discriminant function is < 32, therefore steroids will not be started at this time. - No signs of alcoholic liver failure at this time (normal bilirubin, no coagulopathy, no encephalopathy, normal albumin). Plan: * Trend LFTs daily. * Avoid hepatotoxic medications. * Hepatitis C antibody positive, RNA pending to check for active infection. * Outpatient hepatology follow-up recommended. #Positive hepatitis C antibody - Toxicology screen is positive for opiates, amphetamines/methamphetamines, and marijuana. Plan: * HCV RNA pending. #Asymptomatic urinary tract infection - Patient denies urinary symptoms. - Urinalysis notable for bacteria and leukocyte esterase, consistent with asymptomatic bacteriuria. Plan: * No treatment indicated at this time. * Urine culture pending. Health Maintenance Disposition: tele for CIWA and pneumonia DVT prophylaxis: Heparin 5,000 U subQ GI prophylaxis: None Diet: Regular Martel: [place] Lines: Peripheral IV CODE STATUS: FULL --- Patient plan of care was discussed with the senior resident, Dr. Cuco Shrestha, and attending physician, Dr. Dykes. Ger Sanchez, DO PGY-1
[2025-08-20 12:28] LABS: Amphetamine/Methamp Scrn,U Positive (Negative); Barbiturate Screen,Urine Negative (Negative); Benzodiazepines Screen,Urine Negative (Negative); Benzoylecgonine Screen, Ur Negative (Negative); Fentanyl Screen,Urine Negative (Negative); Opiate Screen,Urine Positive (Negative); THC Screen,Urine Positive (Negative)
--- NOTE | 2025-08-20 13:20 | PC.SS ---
Leslie Acuna is a 55-year-old female admitted to [facility] for Alcohol WD. SS conducted bedside contact with the patient to complete initial assessment and to discuss discharge planning. Role and reason explained. Patient confirmed demographic information. Patient identifies her dtr Cristian Marrero [phone] as her surrogate decision maker. Pt states she is independent with all ADLS, no needs for any source of DME. Pts PCP is [facility] Shrestha [facility]. Pharmacy of choice is [facility]. Discharge options discussed and the pt wishes to return home.? Family will provide transportation upon DC. No further intervention required at this time, social media coordinator would be available to address any further concerns. DC Plan: Home Contact: Dtcatherine Foster Address: Confirmed on face sheet PCP: [facility]
--- NOTE | 2025-08-20 14:42 | PC.SS ---
Rounding: Hep C+, monitoring Liver Enzymes, DC home 1-2 days
--- NOTE | 2025-08-20 17:24 | PC.NURSE ---
Patient will be transferring to med Surg, Report given to Patricia RN Room 362
[2025-08-20] MEDS: ACETAMINOPHEN 325 MG TABLET 650 MG PO (20:36)
[2025-08-21] VITALS: BP 110/59; PULSE 71; RESP 16; TEMP 36.1; O2SAT 97
[2025-08-21 04:00] VITALS: BP 114/62; PULSE 74; RESP 18; TEMP 36.1; O2SAT 97
[2025-08-21] MEDS: HEPARIN SOD INJ 5000 UNIT/ML VIAL SC (05:26)
[2025-08-21] MEDS: IBUPROFEN TAB 400 MG TABLET PO (05:26)
[2025-08-21 06:28] LABS: Basophils # (Auto) 0.1 Thou/mm3 (0.0-0.2); Basophils % (Auto) 1 % (0-2.5); Eosinophils # (Auto) 0.1 Thou/mm3 (0.0-0.5); Eosinophils % (Auto) 3 % (0-10); Hematocrit 40.9 % (36.0-46.0); Hemoglobin 13.6 g/dL (12.0-16.0); Immature Granulocytes Auto 0.02 Thou/mm3 (0.00-0.00); Lymphocytes # (Auto) 1.7 Thou/mm3 (1.0-4.8); Lymphocytes % (Auto) 33 % (10-50); Mean Corpuscular HGB Conc 33.3 g/dl (31.0-37.0); Mean Corpuscular Hemoglobin 30.4 pg (25.0-35.0); Mean Corpuscular Volume 91 fL (80-100); Monocytes # (Auto) 0.5 Thou/mm3 (0.0-0.8); Monocytes % (Auto) 9 % (0-12); Neutrophils # (Auto) 2.8 Thou/mm3 (1.8-7.7); Neutrophils % (Auto) 53 % (37-80); Nucleated Red Blood Cell # 0.00 Thou/mm3 (0.00-0.00); Nucleated Red Blood Cell % 0 /100 WBC (0); Platelet Count 338 Thou/mm3 (140-440); RDW Standard Deviation 41.5 fL (36.4-46.3); Red Blood Count 4.48 Miln/mm3 (4.00-5.20); White Blood Count 5.2 Thou/mm3 (3.6-11.0)
[2025-08-21 06:46] LABS: Alanine Aminotransferase 257 U/L (10-49); Albumin, Serum 4.0 gm/dL (3.5-5.0); Albumin/Globulin Ratio 1.6 (1.2-2.2); Alkaline Phosphatase 445 U/L (46-116); Anion Gap 11 (7-16); Aspartate Amino Transferase 129 U/L (0-34); BUN/Creatinine Ratio 17 Ratio (12-20); Bilirubin,Total 0.3 mg/dL (0.3-1.2); Blood Urea Nitrogen 10 mg/dL (9-23); Calcium 9.9 mg/dL (8.3-10.6); Calcium (Corrected) 9.9 mg/dL (8.5-10.1); Carbon Dioxide 27.5 mMol/L (20.0-31.0); Chloride 107 mMol/L (98-107); Creatinine (Component) 0.6 mg/dL (0.6-1.3); Estimated Creatinine Clearance 91.5 mL/min (>60); Globulin 2.5 gm/dL (2.3-3.5); Glucose 105 mg/dL (74-106); Magnesium 1.9 mg/dL (1.6-2.6); Osmolality,Calculated 287 (275-295); Phosphorous 5.0 mg/dL (2.4-5.1); Potassium 3.8 mMol/L (3.4-5.1); Sodium 145 mMol/L (136-145); Total Protein 6.5 gm/dL (5.7-8.2); eGFR > 60 See Note
[2025-08-21 08:03] VITALS: BP 145/96; PULSE 100; RESP 17; TEMP 36.9; O2SAT 95
[2025-08-21] MEDS: THIAMINE 100 MG TABLET PO (08:12)
[2025-08-21] MEDS: cefTRIAXone/D5w 1gm IV premix 1 GM/50 ML BAG IV (08:12)
[2025-08-21] MEDS: FOLIC ACID 1 MG TABLET PO (08:12)
[2025-08-21 12:03] VITALS: BP 144/95; PULSE 91; RESP 18; TEMP 36.4; O2SAT 97
--- NOTE | 2025-08-21 13:06 | ESDS_ITS ---
<Statement entered by Michael Shrestha MD - 08/21/25 14:14> Patient was examined and case was reviewed with team including attending physician. Note reviewed, I agree with most of its contents and agree with the patient's care as documented by Dr. Sanchez Case discussed with my attending Dr. Diane Shrestha MD PGY-2 Planned Discharge Date 08/21/25 DS: Providers Provider Date of admission: 08/18/25 05:44 Primary care physician: Darion Shrestha MD Admitting Provider: Mikey Lopez MD Attending Provider on Admission: Mikey Lopez MD Attending Provider on DC: Bryson Contreras MD Discharging Provider: Ger Sanchez DO Anticipated date of discharge: 08/21/25 DS: Diagnosis Problem List Completed Was Problem List Reviewed/Reconciled?: Yes Hospital Course Hospital Course Hospital course: 55-year-old female with a history of chronic alcohol use who presented to the ED with shortness of breath and a history of abruptly stopping alcohol use a few days prior. On admission, she was diagnosed with alcohol withdrawal and early right basilar pneumonia. During her hospital stay, she was on CIWA protocol for alcohol withdrawal, with CIWA remaining low. The patient was also started on antibiotics (ceftriaxone and azithromycin) for pneumonia. A chest x-ray revealed early right lower lobe pneumonia, which was likely aspiration pneumonia. She was monitored for her liver function due to elevated liver enzymes (AST, ALT, Alk Phos), which were consistent with alcohol-related liver injury. Ultrasound findings indicated moderate hepatomegaly, and hepatitis C antibody testing came back positive, with RNA testing pending to assess for active infection. The patient also had asymptomatic bacteriuria on urinalysis, but no treatment was indicated. The patient's right-sided pleuritic chest pain, initially worsened with deep inspiration, improved with analgesia and incentive spirometry. Throughout her stay, she remained hemodynamically stable, on room air, and without signs of sepsis. Her leukocytosis resolved, and she was discharged with Augmentin for two more days. According to the patient's partner, the patient was found to have a liver mass on CT abdomen pelvis at outside facility. This will need outpatient follow-up. Patient is medically and physically stable for discharge. Discharge Diagnoses: #Alcohol use disorder with recent cessation #Alcohol withdrawal #Early right basilar pneumonia, likely aspiration pneumonia #Transaminitis, likely alcohol-associated liver injury #Hepatomegaly, suspected alcohol-related #Positive hepatitis C antibody, pending RNA testing #Asymptomatic bacteriuria Discharge Plan: You have been started on the following medications: - Augmentin twice daily for 2 more days Please continue all other medications as needed. Please follow up with your primary doctor in 7-10 days. Follow up on pending lab results. Return to ED if you develop new or worsening symptoms. Case discussed with my senior resident Dr. Cuco Shrestha Case discussed with my attending Dr. Contreras. Ger Sanchez DO PGY-1 Status at Discharge Overall status at discharge: patient is back to baseline Time Spent with Patient Time attestation: Total time spent providing and/or coordinating discharge services: Time spent: Greater than 30 minutes Exam Vital Signs Temp Pulse Resp BP Pulse Ox O2 Del Method 97.5 F 91 18 144/95 H 97 Room Air 08/21/25 12:08/21/25 12:03 08/21/25 12:03 08/21/25 12:03 08/21/25 12:03 08/21/25 12:03 Narrative Exam Physical Exam General: No acute distress. HEENT: Normocephalic, atraumatic, extraocular movements intact, pupils equal and reactive to light. Heart: Regular rate and rhythm, no murmurs, rubs or gallops. Lungs: Improved air movement. Abdomen: Soft, nondistended. Mild tenderness on deep palpation to right side of abdomen. No guarding or rebound tenderness. Neurologic: No gross neurological deficit, and patient able to move all 4 extremities. Extremities: No edema, clubbing or cyanosis. Skin: Warm and dry without rashes. Psychiatric: Cooperative, appropriate mood and affect. Discharge Plan Plan Patient Disposition: HOME (Self Care) Care Plan Goals: You have been started on the following medications: - Augmentin twice daily for 2 more days Please continue all other medications as needed. Please follow up with your primary doctor in 7-10 days. Follow up on pending lab results. Return to ED if you develop new or worsening symptoms. Prescriptions/Referrals Prescriptions/Med Rec: New amoxicillin-pot clavulanate 875-125 mg tablet 1 tab PO BID 2 Days Qty: 4 0RF Continued albuterol sulfate [Ventolin HFA] 90 mcg/actuation HFA aerosol inhaler 2 puff inhalation Q6H PRN (Reason: shortness of breath or wheezing) Qty: 6.7 0RF Discontinued ibuprofen 800 mg tablet 800 mg PO TID PRN (Reason: pain) Qty: 30 0RF hydrocodone-acetaminophen 5-325 mg tablet 1 tab PO Q6H MDD 6 Qty: 12 0RF promethazine-codeine 6.25-10 mg/5 mL syrup 5 ml PO Q6H PRN (Reason: cough) Qty: 118 0RF Referrals: Darion Shrestha MD [Primary Care Provider, Family Practice] Patient/Caregiver Discharge Instructions Discharge Activity: activity as tolerated Education Materials: Preventing Pneumonia, Treating Pneumonia, When You Have Pneumonia Print Language: Hungarian Stand Alone Forms: Lucia Award Info., Patient Portal Info Letter Discharge Order Discharge Orders: Discharge (Routine); Ordered 08/21/25 Ordered By: Ger Sanchez Quality Discharge Quality Measures VTE prophylaxis MD Attestestation MD Attestation I have examined the patient, reviewed labs and imaging findings, discussed the case with the resident(s), and reviewed entered orders. I agree with the plan of care as outlined in this note. Time Spent: [address] Diane MD
[2025-08-22 22:01] LABS: HCV RNA, PCR <15 NOT DETECTED IU/mL
[2025-08-27 07:17] LABS: HCV RNA, PCR Log IU <1.18 NOT DETECTED Log IU/mL
== END 2025-08-21 12:13 | disposition home or self-care (01) | DRG 137 ==
LOC: SERX 08-18 03:40 → SERHOLD 08-18 06:28 → S2NX 08-18 18:41 → S3NX 08-20 18:03
PROVIDERS: Admitting Provider Student in an Organized Health Care Education/Training Program; Emergency Provider Emergency Medicine; PCP Family Medicine; Visit Provider Student in an Organized Health Care Education/Training Program
DX: J69.0 Pneumonitis due to inhalation of food and vomit (principal); F10.239 Alcohol dependence with withdrawal, unspecified; B19.20 Unspecified viral hepatitis C without hepatic coma; R16.0 Hepatomegaly, not elsewhere classified; Z87.891 Personal history of nicotine dependence; J18.9 Pneumonia, unspecified organism
CPT/HCPCS: 36415; 71045; 76700; 80053; 80074; 80307; 81001; 83605; 83615; 83690; 83735; 83880; 84100; 84145; 84484; 85025; 85610; 85730; 87040; 87077; 87081; 87086; 87186; 87502; 87522; 87635; 93005; 94640; 94664; 96365; 96366; 96372; 96375; 99285; A9270; J0456; J0696; J1171; J1644; J1885; J2250; J3373; J3411; J3490; J7030; J7050; J7644; J7999